=== PATIENT | female | born 1935 | race Caucasian/White ===

== ENCOUNTER → 2016-08-27 | Outpatient (CLI) | payer MEDICARE ==
--- NOTE | 2016-08-27 11:59 | US ---
EXAMINATION TYPE: US venous doppler duplex LE RT DATE OF EXAM: 08/27/2016 11:20 AM COMPARISON: NONE CLINICAL HISTORY: 80 year-old female right Lower Extremity DVT I80.9. RIGHT leg pain and swelling pos t meniscus repair SIDE PERFORMED: Right TECHNIQUE: The lower extremity deep venous system is examined utilizing real time linear array sonog jannet with graded compression, doppler sonography and color-flow sonography. FINDINGS: VESSELS IMAGED: External Iliac Vein (EIV) Common Femoral Vein Deep Femoral Vein Greater Saphenous Vein * Femoral Vein Popliteal Vein Proximal Calf Veins Posterior tibial veins (* superficial vessels) Right Leg: Negative for DVT IMPRESSION: No evidence for DVT within the right lower extremity.
== END | disposition home or self-care (01) ==
LOC: RADUSWWP 10:53
PROVIDERS: ATTEND Orthopaedic Surgery Sports Medicine
DX: M25.561 Pain in right knee (principal); I82.401 Acute embolism and thrombosis of unspecified deep veins of right lower extremity; M79.661 Pain in right lower leg

== ENCOUNTER → 2018-02-12 | Outpatient (CLI) | payer MEDICARE ==
--- NOTE | 2018-02-15 09:03 | MM ---
Reason for exam: screening (asymptomatic). Last mammogram was performed 1 year ago. History: Patient is postmenopausal. Family history of breast cancer in paternal aunt. Reductions of both breasts, 1987. Excisional biopsy of both breasts. Physical Findings: A clinical breast exam by your physician is recommended on an annual basis and results should be correlated with mammographic findings. MG 3D Screening Mammo W/Cad Bilateral CC and MLO view(s) were taken. Prior study comparison: February 10, 2017, bilateral MG 3d screening mammo w/cad. January 08, 2016, mammogram, performed at [facility]. The breast tissue is heterogeneously dense. This may lower the sensitivity of mammography. Stable benign calcifications. There is no discrete abnormality. No significant changes when compared with prior studies. ASSESSMENT: Benign, BI-RAD 2 RECOMMENDATION: Routine screening mammogram of both breasts in 1 year.
== END | disposition home or self-care (01) ==
LOC: RADMAMWWP 07:57
PROVIDERS: ATTEND Internal Medicine
DX: Z12.31 Encounter for screening mammogram for malignant neoplasm of breast (principal)
CPT/HCPCS: 77063; 77067

== ENCOUNTER → 2018-10-12 | Outpatient (CLI) | payer MEDICARE ==
--- NOTE | 2018-10-12 21:00 | CT ---
EXAMINATION TYPE: CT brain wo con DATE OF EXAM: 10/12/2018 HISTORY: COGNITIVE IMPAIRMENT, MEMORY ISSUES X6 MONTHS CT DLP: 1047.1 mGycm. Automated Exposure Control for Dose Reduction was Utilized. TECHNIQUE: CT scan of the head is performed without contrast. COMPARISON: None. FINDINGS: There is no acute intracranial hemorrhage or midline shift identified. There is diffuse v entricular and sulcal prominence consistent with diffuse age-related cerebral atrophy. There is low- attenuation in the periventricular white matter consistent with chronic small vessel ischemic change. The globes are intact and the visualized sinuses are clear. IMPRESSION: No acute intracranial hemorrhage or midline shift. There is mild diffuse age-related ce rebral atrophy and chronic small vessel ischemic change noted.
== END | disposition home or self-care (01) ==
LOC: RADCTMAIN 16:55
PROVIDERS: ATTEND Internal Medicine
DX: G31.1 Senile degeneration of brain, not elsewhere classified (principal); I67.82 Cerebral ischemia; Z88.2 Allergy status to sulfonamides
CPT/HCPCS: 70450

== ENCOUNTER 2021-01-25 16:48 | Inpatient (IN) | payer MEDICARE ==
[2021-01-25] MEDS ORDERED: SODIUM CHLORIDE 0.9% 500 ML 500 ML IV STA (17:33)
--- NOTE | 2021-01-25 17:47 | ED ---
General Adult HPI - General Chief complaint: ENT Stated complaint: sores in mouth Time Seen by Provider: 01/25/21 17:14 Source: patient Mode of arrival: ambulatory Limitations: no limitations - History of Present Illness Initial comments: 85-year-old female with a history of dementia presents to the emergency department, accompanied by her spouse and her daughter, for evaluation of mouth sores, onset 1 week ago. Patient's daughter states the number and size of the sores have increased over the course of the past week. The patient has been seen by a dentist and credit relationship manager, one of which referred her to hematology. Daughter states they will be unable to see the metal framer until next week or the following week. She is concerned because the patient has had decreased oral intake due to discomfort associated with mouth sores. Motrin was given prior to arrival with minimal improvement. When asked about bleeding and bruising, patient and family deny any episodes. Patient denies any fever, chills, headache, chest pain, shortness of breath, or bowel or bladder changes. - Related Data Home Medications Medication Instructions Recorded Confirmed Aspirin EC [Ecotrin Low Dose] 81 mg PO DAILY 01/25/21 01/25/21 Cholecalciferol [Vitamin D3 (25 25 mcg PO DAILY 01/25/21 01/25/21 Mcg = 1000 Iu)] Docusate [Colace] 100 mg PO BID 01/25/21 01/25/21 Donepezil [Aricept] 10 mg PO BID 01/25/21 01/25/21 Latanoprost [Xalatan 0.005%] 1 drop BOTH EYES HS 01/25/21 01/25/21 Memantine [Namenda] 10 mg PO BID 01/25/21 01/25/21 Mirtazapine [Remeron] 22.5 mg PO HS 01/25/21 01/25/21 Multivitamins, Thera [Multivitamin 1 tab PO DAILY 01/25/21 01/25/21 (formulary)] Neuro-Peak 1 tab PO DAILY 01/25/21 01/25/21 [place]-3 Fatty Acids/Fish Oil [Fish 1 cap PO DAILY 01/25/21 01/25/21 Oil 1,000 mg Softgel] Quinapril HCl [Accupril] 10 mg PO DAILY 01/25/21 01/25/21 Simvastatin [Zocor] 40 mg PO HS 01/25/21 01/25/21 Zinc 50 mg PO DAILY 01/25/21 01/25/21 Allergies Allergy/AdvReac Type Severity Reaction Status Date / Time Sulfa (Sulfonamide Allergy Unknown Verified 01/25/21 18:07 Antibiotics) Review of Systems ROS Statement: Those systems with pertinent positive or pertinent negative responses have been documented in the HPI. ROS Other: All systems not noted in ROS Statement are negative. Past Medical History Past Medical History: Dementia, Hyperlipidemia, Hypertension History of Any Multi-Drug Resistant Organisms: None Reported Past Surgical History: Hysterectomy Past Psychological History: No Psychological Hx Reported Smoking Status: Former smoker Past Alcohol Use History: None Reported Past Drug Use History: None Reported General Exam General appearance: alert, in no apparent distress, other (Well-developed, well- nourished female in no acute distress. Patient is a poor historian due to diagnosis of dementia. Family provides details, contacts, and timeline.) Head exam: Present: atraumatic, normocephalic, normal inspection Eye exam: Present: normal appearance, PERRL, EOMI. Absent: conjunctival injection Expanded Mouth exam: Present: normal external inspection, other (Multiple areas of oral purpura noted on buccal mucosa and floor of the mouth) Neck exam: Present: normal inspection. Absent: tenderness, meningismus, lymphadenopathy Respiratory exam: Present: normal lung sounds bilaterally. Absent: respiratory distress, wheezes, rales, rhonchi, stridor Cardiovascular Exam: Present: regular rate, normal rhythm, normal heart sounds. Absent: systolic murmur, diastolic murmur, rubs, gallop, clicks GI/Abdominal exam: Present: soft, normal bowel sounds. Absent: distended, tenderness, guarding, rebound, rigid Skin exam: Present: warm, dry, intact, petechiae (Scattered across upper chest and bilateral lower extremities) Course Vital Signs 01/25/21 01/25/21 01/25/21 17:02 18:08 21:11 Temperature 98.2 F Pulse Rate 71 Respiratory 18 16 Rate Blood Pressure 133/76 143/75 O2 Sat by Pulse 98 Oximetry 01/25/21 01/25/21 01/25/21 22:26 22:36 22:38 Temperature 98.2 F 98.4 F 98.4 F Pulse Rate 59 L 65 70 Respiratory 18 18 18 Rate Blood Pressure 151/78 154/74 154/74 O2 Sat by Pulse 98 98 Oximetry 01/25/21 01/26/21 23:06 00:10 Temperature 98.0 F 98.2 F Pulse Rate 62 91 Respiratory 18 16 Rate Blood Pressure 157/72 144/78 O2 Sat by Pulse 98 98 Oximetry Medical Decision Making - Medical Decision Making 85-year-old female with history of dementia was evaluated for complaints of mouth sores. Physical exam is significant for multiple areas of purpura in the oral and buccal mucosa. Patient also has scattered areas of pinpoint petechiae on the upper chest and lower extremities. Pertinent lab finding includes a platelet level of 3. Patient was given Protonix; platelet transfusion ordered. This patient's case was discussed with my attending Dr. Moore. She will be admitted with a diagnosis of thrombocytopenia. Spoke with Dr. Angulo regarding admission. - Lab Data Result diagrams: 01/25/21 Unknown 01/25/21 17:40 Lab Results 01/25/21 01/25/21 01/25/21 Range/Units 17:40 17:40 21:10 PT 10.7 (9.0-12.0) sec INR 1.0 (<1.2) APTT 21.6 L (22.0-30.0) sec Sodium 136 L (137-145) mmol/L Potassium 4.2 (3.5-5.1) mmol/L Chloride 104 (98-107) mmol/L Carbon Dioxide 26 (22-30) mmol/L Anion Gap 6 mmol/L BUN 36 H (7-17) mg/dL Creatinine 0.78 (0.52-1.04) mg/dL Est GFR (CKD-EPI)AfAm 80 (>60 ml/min/1.73 sqM) Est GFR (CKD-EPI)NonAf 69 (>60 ml/min/1.73 sqM) Glucose 91 (74-99) mg/dL Calcium 9.5 (8.4-10.2) mg/dL Total Bilirubin 0.4 (0.2-1.3) mg/dL AST 31 (14-36) U/L ALT 15 (4-34) U/L Alkaline Phosphatase 66 (38-126) U/L Total Protein 7.1 (6.3-8.2) g/dL Albumin 4.0 (3.5-5.0) g/dL Blood Type A Positive Blood Type Confirm Blood Type Recheck No Previous Record Bld Type Recheck Status CABO Indicated Antibody Screen NEGATIVE Transfuse Platelets 01/25/2021 Spec Expiration Date 01/28/2021 - 230901/25/21 Range/Units 21:19 PT (9.0-12.0) sec INR (<1.2) APTT (22.0-30.0) sec Sodium (137-145) mmol/L Potassium (3.5-5.1) mmol/L Chloride (98-107) mmol/L Carbon Dioxide (22-30) mmol/L Anion Gap mmol/L BUN (7-17) mg/dL Creatinine (0.52-1.04) mg/dL Est GFR (CKD-EPI)AfAm (>60 ml/min/1.73 sqM) Est GFR (CKD-EPI)NonAf (>60 ml/min/1.73 sqM) Glucose (74-99) mg/dL Calcium (8.4-10.2) mg/dL Total Bilirubin (0.2-1.3) mg/dL AST (14-36) U/L ALT (4-34) U/L Alkaline Phosphatase (38-126) U/L Total Protein (6.3-8.2) g/dL Albumin (3.5-5.0) g/dL Blood Type Blood Type Confirm A Positive Blood Type Recheck Bld Type Recheck Status Antibody Screen Transfuse Platelets Spec Expiration Date Disposition Clinical Impression: Thrombocytopenia Disposition: ADMITTED IP TO THIS [facility] Condition: Serious Decision to Admit Reason: Admit from EC Decision Date: 01/25/21 Decision Time: 22:30
[2021-01-25 17:55] LABS: Calcium 9.5 mg/dL (8.4-10.2); Potassium 4.2 mmol/L (3.5-5.1); Total Bilirubin 0.4 mg/dL (0.2-1.3); Total Protein 7.1 g/dL (6.3-8.2)
[2021-01-25 18:02] LABS: Partial Thromboplastin Time 21.6 sec (22.0-30.0); Prothrombin Time 10.7 sec (9.0-12.0)
[2021-01-25 18:32] LABS: Basophils % (A) 0 %; Eosinophils # (A) 0.1 k/uL (0-0.7); Eosinophils % (A) 2 %; HCT 41.3 % (34.0-46.0); HGB 13.9 gm/dL (11.4-16.0); Lymphocytes # (A) 1.4 k/uL (1.0-4.8); Lymphocytes % (A) 17 %; MCH 29.4 pg (25.0-35.0); MCHC 33.6 g/dL (31.0-37.0); MCV 87.5 fL (80.0-100.0); Mean Platelet Volume 10.2; Monocytes # (A) 0.3 k/uL (0-1.0); Monocytes % (A) 4 %; Neutrophils # (A) 6.1 k/uL (1.3-7.7); Neutrophils % (A) 75 %; RBC 4.72 m/uL (3.80-5.40); RDW 13.2 % (11.5-15.5); WBC 8.1 k/uL (3.8-10.6)
[2021-01-25 19:19] LABS: Platelet Count 3 k/uL (150-450)
[2021-01-25 19:21] LABS: Poikilocytosis (M) Present
[2021-01-25] MEDS ORDERED: PANTOPRAZOLE 40 MG/10 ML VIAL IVP STA (20:31)
[2021-01-25] MEDS ORDERED: NALOXONE 0.4 MG/ML 1 ML VIAL IV PRN (22:19)
--- NOTE | 2021-01-26 00:05 | P.HPIM ---
History of Present Illness H&P Date: 01/25/21 The patient is an 85-year-old female with a PMH of dementia, hypertension, and hyperlipidemia who was brought in by her daughter due to painful multiple ulcers. History supplemental by the daughter at the bedside due to the patient's history of dementia. The daughter states that the patient developed painful mouth ulcers roughly a week ago, for which she was seen at her dentist who subsequently referred him to an geosciences faculty member who then referred him to a pit clerk. The patient has been trying to obtain an appointment with the pit clerk but was told that it may take several weeks. As per the daughter, the patient has been refusing to eat or drink much due to pain associated with the source. The patient reportedly has no history of such sores in the past, no history of bleeding disorders, bone marrow disorders, leukemias, anemia of any sort, or low platelets. The daughter reported noticing some small scattered red spots throughout her legs and also on her chest. The patient was started on Namenda 6 weeks ago with no additional changes in her medications recently. The patient denied chest discomfort, shortness of breath, fever, chills, cough. Denied nausea, vomiting, abdominal pain, diarrhea. In the emergency room, laboratory evaluation revealed a platelet count of 3, and BUN 36. Review of systems: Pertinent positives and negatives as discussed in HPI, a complete review of systems was performed and all other systems are negative. Physical examination: General: non toxic, no distress, appears at stated age, normal weight Derm: no unusual rashes/lesions no unusual ecchymoses, warm, dry Head: atraumatic, normocephalic, symmetric Eyes: EOMI, no lid lag, anicteric sclera, pupils equal round reactive to light ENT: Nose and ears atraumatic, no thrush, no pharyngeal erythema Neck: No thyromegaly, no cervical lymphadenopathy, trachea midline, supple Mouth: no lip lesion, mucus membranes moist Cardiovascular: S1S2 reg, no murmur, positive posterior tibial pulse bilateral, no edema, capillary refill less than 2 seconds Lungs: CTA bilateral, no rhonchi, no rales , no accessory muscle use Abdominal: soft, nontender to palpation, no guarding, no appreciable org anomegaly, normal bowel sounds Ext: no gross muscle atrophy, muscle strength 5 out of 5 in all 4 extremities grossly, no contractures, Neuro: CN II-XI grossly intact, light touch intact all 4 extremities, finger to nose within normal limits, Psych: Alert, oriented only to self, not oriented to place or time, pleasant Assessment/plan Severe thrombocytopenia -5 units of platelets ordered -Hematology consulted -No clear etiology at this time Prerenal azotemia, likely secondary to poor oral intake and dehydration -Continue with IV fluids -Monitor BMP Chronic conditions: Hypertension, hyperlipidemia dementia -Continue with home meds DVT prophylaxis -IPCDs The patient is admitted with an anticipated greater than 2 midnight stay for evaluation of thrombocytopenia CODE STATUS: Full Code Discussed with: Patient Anticipated discharge date: 2-[address]: Home Past Medical History Past Medical History: Dementia, Hyperlipidemia, Hypertension History of Any Multi-Drug Resistant Organisms: None Reported Past Surgical History: Hysterectomy Past Psychological History: No Psychological Hx Reported Smoking Status: Former smoker Past Alcohol Use History: None Reported Past Drug Use History: None Reported Medications and Allergies Home Medications Medication Instructions Recorded Confirmed Type Aspirin EC [Ecotrin Low Dose] 81 mg PO DAILY 01/25/21 01/25/21 History Cholecalciferol [Vitamin D3 (25 25 mcg PO DAILY 01/25/21 01/25/21 History Mcg = 1000 Iu)] Docusate [Colace] 100 mg PO BID 01/25/21 01/25/21 History Donepezil [Aricept] 10 mg PO BID 01/25/21 01/25/21 History Latanoprost [Xalatan 0.005%] 1 drop BOTH EYES HS 01/25/21 01/25/21 History Memantine [Namenda] 10 mg PO BID 01/25/21 01/25/21 History Mirtazapine [Remeron] 22.5 mg PO HS 01/25/21 01/25/21 History Multivitamins, Thera [Multivitamin 1 tab PO DAILY 01/25/21 01/25/21 History (formulary)] Neuro-Peak 1 tab PO DAILY 01/25/21 01/25/21 History [place]-3 Fatty Acids/Fish Oil [Fish 1 cap PO DAILY 01/25/21 01/25/21 History Oil 1,000 mg Softgel] Quinapril HCl [Accupril] 10 mg PO DAILY 01/25/21 01/25/21 History Simvastatin [Zocor] 40 mg PO HS 01/25/21 01/25/21 History Zinc 50 mg PO DAILY 01/25/21 01/25/21 History Allergies Allergy/AdvReac Type Severity Reaction Status Date / Time Sulfa (Sulfonamide Allergy Unknown Verified 01/25/21 18:07 Antibiotics) Physical Exam Vitals: Vital Signs Temp Pulse Resp BP Pulse Ox 01/25/21 23:06 98.0 F 62 18 157/72 98 01/25/21 22:38 98.4 F 70 18 154/74 98 01/25/21 22:36 98.4 F 65 18 154/74 98 01/25/21 22:26 98.2 F 59 L 18 151/78 01/25/21 21:11 143/75 01/25/21 18:08 16 01/25/21 17:02 98.2 F 71 18 133/76 98 Intake and Output 01/25/21 01/25/21 01/26/21 14:59 22:59 06:59 Intake Total 0 Balance 0 Intake: Blood Product 0 Platelet Pheresis Pas 0 Psoralen Unit [id number] Other: Weight 56.699 kg Results CBC & Chem 7: 01/25/21 Unknown 01/25/21 17:40 Labs: Abnormal Lab Results - Last 24 Hours (Table) 01/25/21 01/25/21 01/25/21 Range/Units 17:40 17:40 Unknown Plt Count 3 L* (150-450) k/uL APTT 21.6 L (22.0-30.0) sec Sodium 136 L (137-145) mmol/L BUN 36 H (7-17) mg/dL
[2021-01-26] MEDS: SODIUM CHLORIDE 0.9% 1,000 ML IV SCH ×2 (01:27→14:46)
[2021-01-26 08:11] LABS: Basophils % (A) 0 %; Eosinophils # (A) 0.1 k/uL (0-0.7); Eosinophils % (A) 1 %; HGB 12.8 gm/dL (11.4-16.0); Lymphocytes # (A) 0.6 k/uL (1.0-4.8); Lymphocytes % (A) 8 %; MCH 29.9 pg (25.0-35.0); MCHC 33.6 g/dL (31.0-37.0); MCV 89.1 fL (80.0-100.0); Mean Platelet Volume 17.4; Monocytes # (A) 0.3 k/uL (0-1.0); Monocytes % (A) 5 %; Neutrophils # (A) 5.6 k/uL (1.3-7.7); Neutrophils % (A) 85 %; RBC 4.27 m/uL (3.80-5.40); RDW 13.1 % (11.5-15.5); WBC 6.6 k/uL (3.8-10.6)
[2021-01-26 08:14] LABS: Platelet Count 4 k/uL (150-450)
[2021-01-26 09:52] LABS: Large Platelets Present
[2021-01-26] MEDS: MEMANTINE 10 MG TAB PO SCH ×2 (10:43→22:02)
[2021-01-26] MEDS: DONEPEZIL 10 MG TAB PO SCH ×2 (10:43→21:30)
[2021-01-26] MEDS: DOCUSATE 100 MG CAP PO SCH ×2 (10:43→21:29)
[2021-01-26] MEDS: ZINC SULFATE 220 MG CAP PO SCH (10:43)
[2021-01-26] MEDS: lisinopriL 10 MG TAB PO SCH (10:43)
[2021-01-26] MEDS ORDERED: NON FORMULARY DRUG IV SCH (11:45)
--- NOTE | 2021-01-26 11:53 | P.CONS ---
History of Present Illness - Reason for Consult Consult date: 01/26/21 Thrombocytopenia Requesting physician: Fredi Moore - Chief Complaint Mouth Sores and petechaie - History of Present Illness Mrs. Atkinson iss an 85 year old female who presents to hospital with complaints of BLE rash and mouth sores. On admission platelet count 3K. Therefore we have been asked to evaluate further. Daughter and at bedside, no recent infections, vaccinations, or new medications other than Namenda. Review of Systems ROS unobtainable: due to mental status All systems: negative Past Medical History Past Medical History: Dementia, Hyperlipidemia, Hypertension History of Any Multi-Drug Resistant Organisms: None Reported Past Surgical History: Hysterectomy Past Anesthesia/Blood Transfusion Reactions: Postoperative Nausea & Vomiting (PONV) Past Psychological History: No Psychological Hx Reported Smoking Status: Former smoker Past Alcohol Use History: None Reported Past Drug Use History: None Reported Medications and Allergies Home Medications Medication Instructions Recorded Confirmed Type Aspirin EC [Ecotrin Low Dose] 81 mg PO DAILY 01/25/21 01/25/21 History Cholecalciferol [Vitamin D3 (25 25 mcg PO DAILY 01/25/21 01/25/21 History Mcg = 1000 Iu)] Docusate [Colace] 100 mg PO BID 01/25/21 01/25/21 History Donepezil [Aricept] 10 mg PO BID 01/25/21 01/25/21 History Latanoprost [Xalatan 0.005%] 1 drop BOTH EYES HS 01/25/21 01/25/21 History Memantine [Namenda] 10 mg PO BID 01/25/21 01/25/21 History Mirtazapine [Remeron] 22.5 mg PO HS 01/25/21 01/25/21 History Multivitamins, Thera [Multivitamin 1 tab PO DAILY 01/25/21 01/25/21 History (formulary)] Neuro-Peak 1 tab PO DAILY 01/25/21 01/25/21 History [place]-3 Fatty Acids/Fish Oil [Fish 1 cap PO DAILY 01/25/21 01/25/21 History Oil 1,000 mg Softgel] Quinapril HCl [Accupril] 10 mg PO DAILY 01/25/21 01/25/21 History Simvastatin [Zocor] 40 mg PO HS 01/25/21 01/25/21 History Zinc 50 mg PO DAILY 01/25/21 01/25/21 History Allergies Allergy/AdvReac Type Severity Reaction Status Date / Time Sulfa (Sulfonamide Allergy Unknown Verified 01/25/21 18:07 Antibiotics) Physical Exam Vitals: Vital Signs Temp Pulse Pulse Resp BP BP Pulse Ox 01/26/21 11:41 98.4 F 79 16 127/69 96 01/26/21 10:44 127/72 01/26/21 06:01 98.2 F 83 18 151/76 95 01/26/21 01:23 98.5 F 82 18 130/70 96 01/26/21 00:10 98.2 F 91 16 144/78 98 01/25/21 23:50 16 01/25/21 23:06 98.0 F 62 18 157/72 98 01/25/21 22:38 98.4 F 70 18 154/74 98 01/25/21 22:36 98.4 F 65 18 154/74 98 01/25/21 22:26 98.2 F 59 L 18 151/78 01/25/21 21:11 143/75 01/25/21 18:08 16 01/25/21 17:02 98.2 F 71 18 133/76 98 Intake and Output 01/25/21 01/26/21 01/26/21 22:59 06:59 14:59 Intake Total 0 637 Balance 0 637 Intake: Intake, IV Titration 300 Amount Sodium Chloride 0.9% 1, 300 000 ml @ 75 mls/hr IV . [id number] [facility] Rx#:[id number] Blood Product 0 337 Platelet Pheresis Pas 0 337 Psoralen Unit [id number] Other: Voiding Method Toilet Toilet # Voids 2 Weight 56.699 kg 59 kg - Constitutional Blood blisters in mouth General appearance: cooperative, no acute distress - EENT Eyes: EOMI ENT: hard of hearing, NA/AT - Neck Neck: normal ROM - Respiratory Respiratory: bilateral: CTA - Cardiovascular Rhythm: regularly irregular leg Peripheral Edema: bilateral: Trace (petechaei in bilateral lower legs ) - Gastrointestinal General gastrointestinal: normal bowel sounds, soft - Integumentary Integumentary: pale - Neurologic caty - Musculoskeletal Musculoskeletal: generalized weakness - Psychiatric Poor historian Results CBC & Chem 7: 01/27/21 05:23 01/27/21 05:23 Labs: Abnormal Lab Results - Last 24 Hours (Table) 01/25/21 01/25/21 01/25/21 Range/Units 17:40 17:40 Unknown Plt Count 3 L* (150-450) k/uL Lymphocytes # (1.0-4.8) k/uL APTT 21.6 L (22.0-30.0) sec Sodium 136 L (137-145) mmol/L BUN 36 H (7-17) mg/dL 01/26/21 Range/Units 06:46 Plt Count 4 L* (150-450) k/uL Lymphocytes # 0.6 L (1.0-4.8) k/uL APTT (22.0-30.0) sec Sodium (137-145) mmol/L BUN (7-17) mg/dL Assessment and Plan (1) Acute ITP Current Visit: Yes Status: Acute Code(s): D69.3 - IMMUNE THROMBOCYTOPENIC PURPURA SNOMED Code(s): 136646101 (2) Thrombocytopenia Current Visit: Yes Status: Acute Code(s): D69.6 - THROMBOCYTOPENIA, UNSPECIFIED SNOMED Code(s): 102572723 Plan: IV Dexamethasone PPI ans IVIG Transfuse platelets since less than 10K
[2021-01-26] MEDS ORDERED: IMMUNE GLOBULIN (GAMMAGARD) 20 GM in EMPTY BAG 1 BAG IV ONE (13:00)
[2021-01-26] MEDS: DEXAMETHASONE SOD PHOSPHATE 10 MG/ML 1 ML VIAL IV SCH (13:01)
--- NOTE | 2021-01-26 17:44 | P.PN ---
Subjective Progress Note Date: 01/26/21 No significant events overnight, still awaiting platelet transfusion, no signs of active bleeding, no new bruising. Patient denies any chest pain, shortness of breath, no hemoptysis, no hematuria, no blood in stool. She denies taking anticoagulants at home, but has been on aspirin. No history of bleeding disorders or coagulopathy in the past Objective - Vital Signs Vital signs: Vital Signs Temp 98.6 F 01/26/21 15:35 Pulse 86 01/26/21 15:35 Resp 18 01/26/21 15:35 BP 113/63 01/26/21 15:35 Pulse Ox 95 01/26/21 15:35 Intake & Output 01/25/21 01/26/21 01/26/21 18:59 06:59 18:59 Intake Total 637 35 Balance 637 35 Weight 56.699 kg 59 kg Intake: Intake, IV Titration 300 35 Amount Immune Globulin ( 35 Gammagard) 20 gm In Empty Bag 1 bag @ Titrate IV . Q0M ONE Rx#:[id number] Sodium Chloride 0.9% 1, 300 000 ml @ 75 mls/hr IV . [id number] [facility] Rx#:[id number] Blood Product 337 Platelet Pheresis Pas 337 Psoralen Unit [id number] Other: Voiding Method Toilet Toilet # Voids 2 - Exam General: non toxic, no distress, appears at stated age, normal weight Derm: no unusual rashes/lesions no unusual ecchymoses, warm, dry Head: atraumatic, normocephalic, symmetric Eyes: EOMI, no lid lag, anicteric sclera, pupils equal round reactive to light ENT: Nose and ears atraumatic, no thrush, no pharyngeal erythema Neck: No thyromegaly, no cervical lymphadenopathy, trachea midline, supple Mouth: no lip lesion, mucus membranes moist Cardiovascular: S1S2 reg, no murmur, positive posterior tibial pulse bilateral, no edema, capillary refill less than 2 seconds Lungs: CTA bilateral, no rhonchi, no rales , no accessory muscle use Abdominal: soft, nontender to palpation, no guarding, no appreciable organomegaly, normal bowel sounds Ext: no gross muscle atrophy, muscle strength 5 out of 5 in all 4 extremities grossly, no contractures, Neuro: CN II-XI grossly intact, light touch intact all 4 extremities, finger to nose within normal limits, Psych: Alert, oriented only to self, not oriented to place or time, pleasant - Labs CBC & Chem 7: 01/26/21 06:46 01/25/21 17:40 Labs: Abnormal Lab Results - Last 24 Hours (Table) 01/25/21 01/25/21 01/25/21 Range/Units 17:40 17:40 Unknown Plt Count 3 L* (150-450) k/uL Lymphocytes # (1.0-4.8) k/uL APTT 21.6 L (22.0-30.0) sec Sodium 136 L (137-145) mmol/L BUN 36 H (7-17) mg/dL 01/26/21 Range/Units 06:46 Plt Count 4 L* (150-450) k/uL Lymphocytes # 0.6 L (1.0-4.8) k/uL APTT (22.0-30.0) sec Sodium (137-145) mmol/L BUN (7-17) mg/dL Assessment and Plan Assessment: Severe thrombocytopenia -5 units of platelets ordered but have not arrived yet -Differential diagnoses includes: immune/idiopathic thrombocytopenia, bone marrow suppression -Check peripheral blood smear, HCV, coagulation studies -Patient is receiving IV Decadron and IVIG -Appreciate further recommendations from hematology Prerenal azotemia -Creatinine has been stable -likely secondary to poor oral intake and dehydration -Continue with IV fluids -Monitor BMP Chronic conditions: Hypertension, hyperlipidemia dementia -Continue with home meds DVT prophylaxis -IPCDs Time with Patient: Less than 30
[2021-01-26] MEDS: PANTOPRAZOLE 40 MG TABLET PO SCH (17:46)
[2021-01-26] MEDS ORDERED: HYDROcodone/APAP 5-325MG 1 EACH TAB PO PRN (18:20)
[2021-01-26] MEDS ORDERED: ACETAMINOPHEN TAB 325 MG TAB PO PRN (18:20)
[2021-01-26] MEDS: ATORVASTATIN 20 MG TAB PO SCH (21:29)
[2021-01-26] MEDS: MELATONIN 3 MG TABLET PO SCH (21:30)
[2021-01-26] MEDS: MIRTAZAPINE 15 MG TAB PO SCH (22:02)
[2021-01-26] MEDS: LATANOPROST 0.005% OPHTH DROPS 2.5 ML BTL BOTH EYES SCH (23:12)
[2021-01-27] MEDS: SODIUM CHLORIDE 0.9% 1,000 ML IV SCH (04:15)
[2021-01-27 06:13] LABS: INR 1.1 (<1.2); Prothrombin Time 11.6 sec (9.0-12.0)
[2021-01-27 06:25] LABS: Basophils % (A) 0 %; Eosinophils % (A) 0 %; HCT 39.1 % (34.0-46.0); HGB 13.2 gm/dL (11.4-16.0); Lymphocytes # (A) 0.6 k/uL (1.0-4.8); Lymphocytes % (A) 6 %; MCH 29.7 pg (25.0-35.0); MCHC 33.7 g/dL (31.0-37.0); MCV 87.9 fL (80.0-100.0); Mean Platelet Volume 14.6; Monocytes # (A) 0.3 k/uL (0-1.0); Monocytes % (A) 2 %; Neutrophils # (A) 10.2 k/uL (1.3-7.7); Neutrophils % (A) 92 %; RBC 4.44 m/uL (3.80-5.40); RDW 13.2 % (11.5-15.5); WBC 11.2 k/uL (3.8-10.6)
[2021-01-27 06:49] LABS: ALT 17 U/L (4-34); AST 32 U/L (14-36); African American GFR (CKD) 83 (>60 ml/min/1.73 sqM); Albumin 3.8 g/dL (3.5-5.0); Albumin/Globulin Ratio 1.1; Alkaline Phosphatase 70 U/L (38-126); Anion Gap 9 mmol/L; Blood Urea Nitrogen 22 mg/dL (7-17); Carbon Dioxide 24 mmol/L (22-30); Chloride 111 mmol/L (98-107); Globulin 3.6 g/dL; Glucose 127 mg/dL (74-99); Non-African American GFR(CKD) 72 (>60 ml/min/1.73 sqM); Potassium 3.4 mmol/L (3.5-5.1); Sodium 144 mmol/L (137-145); Total Bilirubin 0.5 mg/dL (0.2-1.3); Total Protein 7.4 g/dL (6.3-8.2)
[2021-01-27 07:02] LABS: Platelet Count 9 k/uL (150-450)
[2021-01-27] MEDS: ZINC SULFATE 220 MG CAP PO SCH (09:10)
[2021-01-27] MEDS: lisinopriL 10 MG TAB PO SCH (09:10)
[2021-01-27] MEDS: DONEPEZIL 10 MG TAB PO SCH ×2 (09:10→21:17)
[2021-01-27] MEDS: PANTOPRAZOLE 40 MG TABLET PO SCH ×2 (09:10→17:02)
[2021-01-27] MEDS: DOCUSATE 100 MG CAP PO SCH ×2 (09:11→21:17)
[2021-01-27] MEDS: DEXAMETHASONE SOD PHOSPHATE 10 MG/ML 1 ML VIAL IV SCH (09:11)
[2021-01-27 09:42] LABS: Erythrocyte Sedimentation Rate 40 mm/hr (0-20)
[2021-01-27 10:27] LABS: Anisocytosis (M) Present; Poikilocytosis (M) Present
[2021-01-27] MEDS: MEMANTINE 10 MG TAB PO SCH ×2 (10:49→21:35)
[2021-01-27] MEDS ORDERED: POTASSIUM CHLORIDE ER 20 MEQ TAB.ER PO STA (10:55)
[2021-01-27] MEDS ORDERED: IMMUNE GLOBULIN (GAMMAGARD) 20 GM in EMPTY BAG 1 BAG IV ONE (13:00)
--- NOTE | 2021-01-27 14:55 | P.PN ---
Subjective Progress Note Date: 01/27/21 patient has received platelet transfusions 2 so far, but her platelets have only increased from 4968-7497. Hemoglobin has been stable, no signs of bleeding, no new bruising, blood pressure has been stable. She denies any headache, no shocks of breath, no chest pain, no abdominal pain, hemoptysis hematuria or hematochezia. She has been fairly stable with no new complaints or symptoms Objective - Vital Signs Vital signs: Vital Signs Temp 97.8 F 01/27/21 04:42 Pulse 91 01/27/21 09:13 Resp 18 01/27/21 04:42 BP 138/68 01/27/21 09:13 Pulse Ox 98 01/27/21 04:42 Intake & Output 01/26/21 01/27/21 01/27/21 18:59 06:59 18:59 Intake Total 35 1446 83.5 Balance 35 1446 83.5 Intake: Intake, IV Titration 35 900 83.5 Amount Immune Globulin ( 35 Gammagard) 20 gm In Empty Bag 1 bag @ Titrate IV . Q0M ONE Rx#:[id number] Immune Globulin ( 83.5 Gammagard) 20 gm In Empty Bag 1 bag @ Titrate IV . Q0M ONE Rx#:[id number] Sodium Chloride 0.9% 1, 900 000 ml @ 75 mls/hr IV . [id number] [facility] Rx#:[id number] Blood Product 546 Platelet Pheresis Pas 273 Psoralen Unit [id number] Other: Voiding Method Toilet Toilet # Voids 2 1 - Exam General: non toxic, no distress, appears at stated age, normal weight Derm: no unusual rashes/lesions no unusual ecchymoses, warm, dry Head: atraumatic, normocephalic, symmetric Eyes: EOMI, no lid lag, anicteric sclera, pupils equal round reactive to light ENT: Nose and ears atraumatic, no thrush, no pharyngeal erythema Neck: No thyromegaly, no cervical lymphadenopathy, trachea midline, supple Mouth: no lip lesion, mucus membranes moist Cardiovascular: S1S2 reg, no murmur, positive posterior tibial pulse bilateral, no edema, capillary refill less than 2 seconds Lungs: CTA bilateral, no rhonchi, no rales , no accessory muscle use Abdominal: soft, nontender to palpation, no guarding, no appreciable organomegaly, normal bowel sounds Ext: no gross muscle atrophy, muscle strength 5 out of 5 in all 4 extremities grossly, no contractures, Neuro: CN II-XI grossly intact, light touch intact all 4 extremities, finger to nose within normal limits, Psych: Alert, oriented only to self, not oriented to place or time, pleasant - Labs CBC & Chem 7: 01/27/21 05:23 01/27/21 05:23 Labs: Abnormal Lab Results - Last 24 Hours (Table) 01/26/21 01/27/21 01/27/21 Range/Units 06:46 05:23 05:23 WBC 11.2 H (3.8-10.6) k/uL Plt Count 9 L* D (150-450) k/uL Neutrophils # 10.2 H (1.3-7.7) k/uL Lymphocytes # 0.6 L (1.0-4.8) k/uL ESR 40 H (0-20) mm/hr Potassium 3.4 L (3.5-5.1) mmol/L Chloride 111 H (98-107) mmol/L BUN 22 H (7-17) mg/dL Glucose 127 H (74-99) mg/dL Vitamin B12 1182.0 H (200.0-944.0) pg/mL Assessment and Plan Assessment: Severe thrombocytopenia -platelet levels only increase in 9000 after 2 sets of platelet transfusions -Differential diagnoses includes: immune/idiopathic thrombocytopenia, bone marrow suppression -Check peripheral blood smear, HCV, coagulation studies, GARLAND, RF, TSH -Patient is receiving IV Decadron and IVIG -Appreciate further recommendations from hematology Prerenal azotemia -resolved, creatinine is normal today -likely secondary to poor oral intake and dehydration -IV fluids have been discontinued -Monitor BMP Chronic conditions: Hypertension, hyperlipidemia dementia -Continue with home meds DVT prophylaxis -IPCDs anticipated discharge home the next 2-3 days, or when platelets are relatively stable around 30-40,000 Time with Patient: Greater than 30
[2021-01-27 17:17] LABS: Iron 39 ug/dL (50-170)
[2021-01-27 18:36] LABS: % Iron Saturation 13.08 (12.00-45.00); Ferritin 92.5 ng/mL (10.0-291.0); Iron 40 ug/dL (50-170); Total Iron Binding Capacity 307 ug/dL (228-460)
[2021-01-27 20:53] LABS: Rheumatoid Factor, Qnt <10 IU/mL (0-15)
[2021-01-27] MEDS: ATORVASTATIN 20 MG TAB PO SCH (21:17)
[2021-01-27] MEDS: MELATONIN 3 MG TABLET PO SCH (21:17)
[2021-01-27] MEDS: LATANOPROST 0.005% OPHTH DROPS 2.5 ML BTL BOTH EYES SCH (21:18)
[2021-01-27] MEDS: MIRTAZAPINE 15 MG TAB PO SCH (22:04)
[2021-01-28] MEDS: DOCUSATE 100 MG CAP PO SCH ×2 (08:16→20:32)
[2021-01-28] MEDS: ZINC SULFATE 220 MG CAP PO SCH (08:16)
[2021-01-28] MEDS: PANTOPRAZOLE 40 MG TABLET PO SCH ×2 (08:16→17:43)
[2021-01-28] MEDS: DONEPEZIL 10 MG TAB PO SCH ×2 (08:16→20:31)
[2021-01-28] MEDS: lisinopriL 10 MG TAB PO SCH (08:16)
[2021-01-28] MEDS: DEXAMETHASONE SOD PHOSPHATE 10 MG/ML 1 ML VIAL IV SCH (08:16)
--- NOTE | 2021-01-28 09:06 | P.PN ---
Subjective Progress Note Date: 01/27/21 Principal diagnosis: Late Entry Long discussion with patient, daughter and , status post one day dex and one dosage IVIG and platelets up to 9K Objective - Vital Signs Vital signs: Vital Signs Temp 97.4 F L 01/28/21 08:13 Pulse 94 01/28/21 08:13 Resp 16 01/28/21 08:13 BP 177/77 01/28/21 08:13 Pulse Ox 98 01/28/21 08:13 Intake & Output 01/27/21 01/28/21 01/28/21 18:59 06:59 18:59 Intake Total 83.5 240 Balance 83.5 240 Intake: Intake, IV Titration 83.5 Amount Immune Globulin ( 83.5 Gammagard) 20 gm In Empty Bag 1 bag @ Titrate IV . Q0M ONE Rx#:[id number] Oral 240 Other: # Voids 2 # Bowel Movements 1 - Exam Alert, POor Historian, Neck - Supple Mouth - Oral Blisters improvinf Lungs CTA HEart CTA Abdomen - ND NT EXT no edema - Labs CBC & Chem 7: 01/27/21 05:23 01/27/21 05:23 Labs: Abnormal Lab Results - Last 24 Hours (Table) 01/27/21 01/27/21 01/27/21 Range/Units 05:23 05:23 05:23 Neutrophils # 10.2 H (1.3-7.7) k/uL Lymphocytes # 0.6 L (1.0-4.8) k/uL Pathologist Review See comment A ESR 40 H (0-20) mm/hr Iron 40 L (50-170) ug/dL IgG 1888.0 H (700.0-1600.0) mg/dL 01/27/21 Range/Units 05:23 Neutrophils # (1.3-7.7) k/uL Lymphocytes # (1.0-4.8) k/uL Pathologist Review ESR (0-20) mm/hr Iron 39 L (50-170) ug/dL IgG (700.0-1600.0) mg/dL Assessment and Plan (1) Acute ITP Current Visit: Yes Status: Acute Code(s): D69.3 - IMMUNE THROMBOCYTOPENIC PURPURA SNOMED Code(s): 922158633 (2) Thrombocytopenia Current Visit: Yes Status: Acute Code(s): D69.6 - THROMBOCYTOPENIA, UNSPECIFIED SNOMED Code(s): 338959578 Plan: IV Dexamethasone PPI ans IVIG Transfuse platelets since less than 10K Continue current treatment plan and serial CBCs All questions answered best as possible
[2021-01-28 11:04] LABS: Basophils % (A) 0 %; Eosinophils % (A) 0 %; HCT 37.1 % (34.0-46.0); Lymphocytes % (A) 8 %; MCH 29.7 pg (25.0-35.0); MCHC 32.2 g/dL (31.0-37.0); MCV 92.2 fL (80.0-100.0); Mean Platelet Volume 13.7; Monocytes # (A) 0.5 k/uL (0-1.0); Monocytes % (A) 4 %; Neutrophils # (A) 10.8 k/uL (1.3-7.7); Neutrophils % (A) 87 %; RBC 4.02 m/uL (3.80-5.40); WBC 12.5 k/uL (3.8-10.6)
[2021-01-28 11:18] LABS: Large Platelets Present
[2021-01-28 11:19] LABS: Platelet Count 30 k/uL (150-450)
--- NOTE | 2021-01-28 12:39 | P.PN ---
Subjective Progress Note Date: 01/28/21 Pt doing well today, sores in her mouth are better. Denies bleeding or new rashes. Denies n/v/abd pain, denies f/c. Objective - Vital Signs Vital signs: Vital Signs Temp 97.9 F 01/28/21 12:10 Pulse 68 01/28/21 12:10 Resp 16 01/28/21 12:10 BP 147/78 01/28/21 12:10 Pulse Ox 98 01/28/21 12:10 Intake & Output 01/27/21 01/28/21 01/28/21 18:59 06:59 18:59 Intake Total 83.5 240 Balance 83.5 240 Intake: Intake, IV Titration 83.5 Amount Immune Globulin ( 83.5 Gammagard) 20 gm In Empty Bag 1 bag @ Titrate IV . Q0M ONE Rx#:[id number] Oral 240 Other: # Voids 2 # Bowel Movements 1 - Exam Gen: awake, alert HEENT: normocephalic, atraumatic, good hearing acuity, moist mucous membranes Resp: good air exchange, breathing comfortably with no accessory muscle use CVS: good distal perfusion x 4, GI: soft, NTTP, ND : no SPT, no CVAT, escalera catheter not present MSK: no pitting edema, no clubbing Neuro: non-focal, moving all extremities Psych: cooperative, euthymic mood - Labs CBC & Chem 7: 01/28/21 09:29 01/27/21 05:23 Labs: Abnormal Lab Results - Last 24 Hours (Table) 01/27/21 01/27/21 01/27/21 Range/Units 05:23 05:23 05:23 WBC (3.8-10.6) k/uL Plt Count (150-450) k/uL Neutrophils # (1.3-7.7) k/uL Pathologist Review See comment A Iron 40 L (50-170) ug/dL IgG 1888.0 H (700.0-1600.0) mg/dL 01/27/21 01/28/21 Range/Units 05:23 09:29 WBC 12.5 H (3.8-10.6) k/uL Plt Count 30 L D (150-450) k/uL Neutrophils # 10.8 H (1.3-7.7) k/uL Pathologist Review Iron 39 L (50-170) ug/dL IgG (700.0-1600.0) mg/dL Assessment and Plan Assessment: ITP -platelet levels only increase in 9000 after 2 sets of platelet transfusions -Check peripheral blood smear, HCV, coagulation studies, GARLAND, RF, TSH -TSH is 1.37 -PT/PTT/INR are normal -RF < 10 -GARLAND pending -HCV pending -Patient is receiving IV Decadron and IVIG -Appreciate further recommendations from hematology Prerenal azotemia -resolved, creatinine is normal today -likely secondary to poor oral intake and dehydration -IV fluids have been discontinued -Monitor BMP Chronic conditions: Hypertension, hyperlipidemia dementia -Continue with home meds DVT prophylaxis -IPCDs anticipated discharge home the next 2-3 days, or when platelets are relatively stable around 30-40,000
[2021-01-28] MEDS ORDERED: IMMUNE GLOBULIN (GAMMAGARD) 20 GM in EMPTY BAG 1 BAG IV ONE (13:00)
--- NOTE | 2021-01-28 15:40 | P.PN ---
Subjective Progress Note Date: 01/28/21 Principal diagnosis: Late Entry Awaiting CBC this am, resulted and is 30K. Objective - Vital Signs Vital signs: Vital Signs Temp 97.4 F L 01/28/21 08:13 Pulse 94 01/28/21 08:13 Resp 16 01/28/21 08:13 BP 177/77 01/28/21 08:13 Pulse Ox 98 01/28/21 08:13 Intake & Output 01/27/21 01/28/21 01/28/21 18:59 06:59 18:59 Intake Total 83.5 240 Balance 83.5 240 Intake: Intake, IV Titration 83.5 Amount Immune Globulin ( 83.5 Gammagard) 20 gm In Empty Bag 1 bag @ Titrate IV . Q0M ONE Rx#:[id number] Oral 240 Other: # Voids 2 # Bowel Movements 1 - Exam Alert, POor Historian, Neck - Supple Mouth - Oral Blisters improvinf Lungs CTA HEart CTA Abdomen - ND NT EXT no edema - Labs CBC & Chem 7: 01/28/21 09:29 01/27/21 05:23 Labs: Abnormal Lab Results - Last 24 Hours (Table) 01/27/21 01/27/21 01/27/21 Range/Units 05:23 05:23 05:23 Neutrophils # 10.2 H (1.3-7.7) k/uL Lymphocytes # 0.6 L (1.0-4.8) k/uL Pathologist Review See comment A ESR 40 H (0-20) mm/hr Iron 40 L (50-170) ug/dL IgG 1888.0 H (700.0-1600.0) mg/dL 01/27/21 Range/Units 05:23 Neutrophils # (1.3-7.7) k/uL Lymphocytes # (1.0-4.8) k/uL Pathologist Review ESR (0-20) mm/hr Iron 39 L (50-170) ug/dL IgG (700.0-1600.0) mg/dL Assessment and Plan (1) Acute ITP Current Visit: Yes Status: Acute Code(s): D69.3 - IMMUNE THROMBOCYTOPENIC PURPURA SNOMED Code(s): 967269283 (2) Thrombocytopenia Current Visit: Yes Status: Acute Code(s): D69.6 - THROMBOCYTOPENIA, UNSPECIFIED SNOMED Code(s): 020005516 Plan: COntinue on IV Dexamethasone 40mg Daily and PPI COntinue Day 3/3 IVIG Await results CBC Plan to follow-up in office weekly to wean steroids Message sent to Colin in my office to schedule Physician attest: I have completed the full history and physical and agree with above dictation, dictated as a ascribe.
[2021-01-28] MEDS: LATANOPROST 0.005% OPHTH DROPS 2.5 ML BTL BOTH EYES SCH (20:31)
[2021-01-28] MEDS: MELATONIN 3 MG TABLET PO SCH (20:31)
[2021-01-28] MEDS: MIRTAZAPINE 15 MG TAB PO SCH (20:32)
[2021-01-28] MEDS: ATORVASTATIN 20 MG TAB PO SCH (20:32)
[2021-01-28 21:25] VITALS: PULSE 69; RESP 18; TEMP 98.2
[2021-01-29 08:16] VITALS: BP 154/96
[2021-01-29] MEDS: DEXAMETHASONE SOD PHOSPHATE 10 MG/ML 1 ML VIAL IV SCH (08:17)
[2021-01-29] MEDS: ZINC SULFATE 220 MG CAP PO SCH (08:17)
[2021-01-29] MEDS: DONEPEZIL 10 MG TAB PO SCH (08:17)
[2021-01-29] MEDS: lisinopriL 10 MG TAB PO SCH (08:17)
[2021-01-29] MEDS: PANTOPRAZOLE 40 MG TABLET PO SCH (08:17)
[2021-01-29] MEDS: DOCUSATE 100 MG CAP PO SCH (08:17)
[2021-01-29 08:58] LABS: Basophils % (A) 0 %; Eosinophils % (A) 0 %; HCT 34.3 % (34.0-46.0); HGB 11.2 gm/dL (11.4-16.0); Lymphocytes # (A) 1.6 k/uL (1.0-4.8); Lymphocytes % (A) 14 %; MCH 29.2 pg (25.0-35.0); MCHC 32.6 g/dL (31.0-37.0); MCV 89.5 fL (80.0-100.0); Mean Platelet Volume 11.1; Monocytes # (A) 0.7 k/uL (0-1.0); Monocytes % (A) 6 %; Neutrophils % (A) 79 %; RBC 3.84 m/uL (3.80-5.40); WBC 11.4 k/uL (3.8-10.6)
[2021-01-29 09:08] LABS: Platelet Count 65 k/uL (150-450)
[2021-01-29 09:12] LABS: African American GFR (CKD) 73 (>60 ml/min/1.73 sqM); Anion Gap 7 mmol/L; Blood Urea Nitrogen 25 mg/dL (7-17); Calcium 8.9 mg/dL (8.4-10.2); Carbon Dioxide 26 mmol/L (22-30); Chloride 111 mmol/L (98-107); Glucose 94 mg/dL (74-99); Non-African American GFR(CKD) 63 (>60 ml/min/1.73 sqM); Potassium 3.3 mmol/L (3.5-5.1); Sodium 144 mmol/L (137-145)
[2021-01-29] MEDS ORDERED: Potassium Replacement Protocol 1 EACH MISC MISCELLANE PRN (12:38)
[2021-01-29] MEDS: POTASSIUM CHLORIDE ER 20 MEQ TAB.ER PO SCH ×2 (12:44→13:31)
--- NOTE | 2021-01-29 12:49 | P.DS ---
Providers Date of admission: 01/25/21 22:42 Expected date of discharge: 01/29/21 Attending physician: Lizandro Angulo MD Consults: 01/25/21 20:30 Consult Physician Routine Consulting Provider: Jay Collins Consult Reason/Comments: thrombocytopenia Do you want consulting provider notified?: Yes Primary care physician: Leola Jorge MD Hospital Course: This is a 85-year-old female who was admitted to the hospital with acute thrombocytopenia and platelet count of 3000. Patient was seen and evaluated by hematology and was treated with IV steroids and IVIG. Patient was diagnosed with ITP and extensive lab work was ordered by hematology. Her overall condition improved significantly. She received 2 sets of platelet transfusion as well during this admission. Platelet count improved. On the day of discharge her platelet count was 65k. Patient was cleared for discharge home. She will continue tapered course prednisone as directed. She will follow-up with hematology in the office next week. Discontinue home dose of aspirin for now. Follow up as directed. Patient would be discharged home in a stable condition. Patient was seen and evaluated by me on the day of discharge. Physical exam: General: The patient is awake and alert, in no distress Eye: there is normal conjunctiva bilaterally. Neck: The neck is supple, there is no JVD. Cardiovascular: Normal S1-S2, no S3-S4, no murmurs. Respiratory: Lungs clear to auscultation bilaterally Gastrointestinal: Abdomen is soft, nontender Musculoskeletal: There is no pedal edema. Neurological:. Speech is normal. Skin: Skin is warm and dry Patient Condition at Discharge: Serious Plan - Discharge Summary Discharge Rx Participant: No New Discharge Prescriptions: New RX: predniSONE [Deltasone] 60 mg PO DAILY #53 tab Pantoprazole [Protonix] 40 mg PO BID #60 tab Continue RX: [place]-3 Fatty Acids/Fish Oil [Fish Oil 1,000 mg Softgel] 1 cap PO DAILY RX: Multivitamins, Thera [Multivitamin (formulary)] 1 tab PO DAILY RX: Latanoprost [Xalatan 0.005%] 1 drop BOTH EYES HS RX: Quinapril HCl [Accupril] 10 mg PO DAILY RX: Donepezil [Aricept] 10 mg PO BID RX: Zinc 50 mg PO DAILY RX: Memantine [Namenda] 10 mg PO BID RX: Docusate [Colace] 100 mg PO BID RX: Cholecalciferol [Vitamin D3 (25 Mcg = 1000 Iu)] 25 mcg PO DAILY RX: Mirtazapine [Remeron] 22.5 mg PO HS RX: Simvastatin [Zocor] 40 mg PO HS [facility] 1 tab PO DAILY Discontinued Aspirin EC [Ecotrin Low Dose] 81 mg PO DAILY Discharge Medication List [facility] 1 tab PO DAILY 01/25/21 [History] RX: Cholecalciferol [Vitamin D3 (25 Mcg = 1000 Iu)] 25 mcg PO DAILY 01/25/21 [History] RX: Docusate [Colace] 100 mg PO BID 01/25/21 [History] RX: Donepezil [Aricept] 10 mg PO BID 01/25/21 [History] RX: Latanoprost [Xalatan 0.005%] 1 drop BOTH EYES HS 01/25/21 [History] RX: Memantine [Namenda] 10 mg PO BID 01/25/21 [History] RX: Mirtazapine [Remeron] 22.5 mg PO HS 01/25/21 [History] RX: Multivitamins, Thera [Multivitamin (formulary)] 1 tab PO DAILY 01/25/21 [History] RX: [place]-3 Fatty Acids/Fish Oil [Fish Oil 1,000 mg Softgel] 1 cap PO DAILY 01/25/21 [History] RX: Quinapril HCl [Accupril] 10 mg PO DAILY 01/25/21 [History] RX: Simvastatin [Zocor] 40 mg PO HS 01/25/21 [History] RX: Zinc 50 mg PO DAILY 01/25/21 [History] Pantoprazole [Protonix] 40 mg PO BID #60 tab 01/29/21 [Rx] RX: predniSONE [Deltasone] 60 mg PO DAILY #53 tab 01/29/21 [Rx] Follow up Appointment(s)/Referral(s): Leola Jorge MD [Primary Care Provider] - 1-2 days Nayeli Mack NPC [Nurse Practitioner] - 1 Week (Please call [facility] for appt) Discharge Disposition: HOME SELF-CARE
--- NOTE | 2021-01-29 16:01 | P.PN ---
Subjective Progress Note Date: 01/29/21 Principal diagnosis: ITP Pt is s/p IVIG x 3, pulse dose dex 40mg IV x 4 days (today is day 4). She has no acute c/o, denies any acute bleeding Objective - Vital Signs Vital signs: Vital Signs Temp 98.2 F 01/28/21 21:00 Pulse 69 01/29/21 08:15 Resp 18 01/28/21 21:00 BP 154/96 01/29/21 08:15 Pulse Ox 96 01/28/21 21:00 Intake & Output 01/28/21 01/29/21 01/29/21 18:59 06:59 18:59 Intake Total 15.5 Balance 15.5 Intake: Intake, IV Titration 15.5 Amount Immune Globulin ( 15.5 Gammagard) 20 gm In Empty Bag 1 bag @ Titrate IV . Q0M ONE Rx#:[id number] Other: Voiding Method Toilet # Voids 3 1 - Constitutional General appearance: Present: cooperative, no acute distress, thin - EENT Eyes: Present: anicteric sclerae, EOMI ENT: Present: hearing grossly normal, normal oropharynx - Respiratory Respiratory: bilateral: CTA - Cardiovascular Rhythm: regular Heart sounds: normal: S1, S2 - Peripheral edema leg Peripheral Edema: bilateral: None - Gastrointestinal General gastrointestinal: Present: normal bowel sounds, soft - Neurologic Neurologic: Present: CNII-XII intact - Musculoskeletal Musculoskeletal: Present: strength equal bilaterally - Psychiatric Psychiatric: Present: A&O x's 3, appropriate affect - Labs CBC & Chem 7: 01/29/21 08:32 01/29/21 08:32 Labs: Abnormal Lab Results - Last 24 Hours (Table) 01/26/21 01/28/21 01/29/21 Range/Units 06:46 09:29 08:32 WBC 12.5 H 11.4 H (3.8-10.6) k/uL Hgb 11.2 L (11.4-16.0) gm/dL Plt Count 30 L D 65 L D (150-450) k/uL Neutrophils # 10.8 H 9.0 H (1.3-7.7) k/uL Potassium (3.5-5.1) mmol/L Chloride (98-107) mmol/L BUN (7-17) mg/dL RBC Folate 999 H (280 - 791) ng/mL 01/29/21 Range/Units 08:32 WBC (3.8-10.6) k/uL Hgb (11.4-16.0) gm/dL Plt Count (150-450) k/uL Neutrophils # (1.3-7.7) k/uL Potassium 3.3 L (3.5-5.1) mmol/L Chloride 111 H (98-107) mmol/L BUN 25 H (7-17) mg/dL RBC Folate (280 - 791) ng/mL Assessment and Plan (1) Acute ITP Narrative/Plan: S/P IVIG x 3 with pulse dose dex 40mg x 4 days given. Plt [place] 3000 to [address]229. Pred taper and PPI sent to pt pharmacy. Cont to take. F/U 1 week in ofc to review plt, ensure proper steroid taper and f/u on outstanding labs. Setting for acute ITP suspected to be medication effect. Pt received last dose of Namenda 01/27 2100 dose. Have a call out to Neurology re: taper of this medication. WIll contact pt with further instructions. Status: Acute Priority: High Code(s): D69.3 - IMMUNE THROMBOCYTOPENIC PURPURA SNOMED Code(s): 242870665 Plan: Doctor attests: I performed a history and physical examination of this patient, developed impression and plan of care, discussed with dictator. I agree with dictators note, documented as a scribe. Time with Patient: Greater than 30
== END 2021-01-29 13:56 | disposition home or self-care (01) | DRG 813 ==
LOC: EC 16:48 → 5NMEDONC 22:42
PROVIDERS: ADMIT Internal Medicine; ATTEND Internal Medicine
PROC: 30233R1 Transfusion of Nonautologous Platelets into Peripheral Vein, Percutaneous Approach (ICD-10-PCS; principal; 2021-01-25)
DX: D69.3 Immune thrombocytopenic purpura (principal); I10 Essential (primary) hypertension; E78.5 Hyperlipidemia, unspecified; F03.90 Unspecified dementia, unspecified severity, without behavioral disturbance, psychotic disturbance, mood disturbance, and anxiety; E86.0 Dehydration; R21 Rash and other nonspecific skin eruption; R53.1 Weakness; H91.90 Unspecified hearing loss, unspecified ear; Z20.822 Contact with and (suspected) exposure to COVID-19; Z79.82 Long term (current) use of aspirin; Z79.899 Other long term (current) drug therapy; Z87.891 Personal history of nicotine dependence; Z90.710 Acquired absence of both cervix and uterus; Z88.2 Allergy status to sulfonamides; S00.522A Blister (nonthermal) of oral cavity, initial encounter; X58.XXXA Exposure to other specified factors, initial encounter
CPT/HCPCS: 36415; 80048; 80053; 82607; 82728; 82746; 82747; 82784; 83540; 83550; 83735; 83883; 83921; 84165; 84443; 85025; 85384; 85610; 85652; 85730; 86038; 86334; 86431; 86850; 86900; 86901; 87635; 96360; 99284

== ENCOUNTER → 2021-04-12 | Outpatient (CLI) | payer MEDICARE ==
--- NOTE | 2021-04-12 12:45 | US ---
EXAMINATION TYPE: US venous doppler duplex LE LT DATE OF EXAM: 04/12/2021 12:33 PM COMPARISON: NONE CLINICAL HISTORY: D69.3 ITP, C67.9Ca of Bladder, M12.9 Arthrit E78.5. swollen left leg SIDE PERFORMED: Left TECHNIQUE: The lower extremity deep venous system is examined utilizing real time linear array sonog jannet with graded compression, doppler sonography and color-flow sonography. VESSELS IMAGED: Common Femoral Vein Deep Femoral Vein Greater Saphenous Vein * Femoral Vein Popliteal Vein Small Saphenous Vein * Proximal Calf Veins (* superficial vessels) Left Leg: Negative for DVT Grayscale, color doppler, spectral doppler imaging performed of the deep veins of the left lower extr emity. There is normal flow, compressibility, vascular waveforms. IMPRESSION: No ultrasound evidence for acute DVT in the left lower extremity.
== END | disposition home or self-care (01) ==
LOC: RADUSWWP 12:11
PROVIDERS: ATTEND Internal Medicine Hematology & Oncology
DX: C67.9 Malignant neoplasm of bladder, unspecified (principal); R22.42 Localized swelling, mass and lump, left lower limb; D69.3 Immune thrombocytopenic purpura; M12.9 Arthropathy, unspecified; E78.5 Hyperlipidemia, unspecified

== ENCOUNTER 2021-11-28 14:08 | Emergency (ER) | payer MEDICARE ==
--- NOTE | 2021-11-28 16:22 | ED ---
General Adult HPI - General Chief complaint: Altered Mental Status Stated complaint: Dehydration,AMS Time Seen by Provider: 11/28/21 15:56 Source: patient Mode of arrival: ambulatory Limitations: no limitations - History of Present Illness Initial comments: Dictation was produced using [employer] dictation software. please excuse any grammatical, word or spelling errors. Chief Complaint: 85-year-old female brought in by daughter and for lethargic episode History of Present Illness: 85-year-old female with chronic history of moderate to severe dementia. Yesterday she is found to be lethargic for most of the day. She was observed to be coughing also. This morning seemed to be a lot more improved since yesterday. Daughter and had a conversation with patient's primary care doctor who suggested that patient come to the ER to be evaluated. Patient is unreliable historian at this time secondary to her dementia. The ROS documented in this emergency department record has been reviewed and confirmed by me. Those systems with pertinent positive or negative responses have been documented in the HPI. All other systems are other negative and/or noncontributory. PHYSICAL EXAM: General Impression: Alert and oriented x3/4, not in acute distress HEENT: Normocephalic atraumatic, extra-ocular movements intact, pupils equal and reactive to light bilaterally, mucous membranes moist. Cardiovascular: Heart regular rate and rhythm Chest: Able to complete full sentences, no retractions, no tachypnea Abdomen: abdomen soft, non-tender, non-distended, no organomegaly Musculoskeletal: Pulses present and equal in all extremities, no peripheral edema Motor: no focal deficits noted Neurological: CN II-XII grossly intact, no focal motor or sensory deficits noted Skin: Intact with no visualized rashes Psych: Normal affect and mood ED course: 85-year-old female with moderate to severe dementia presents to the ER for lethargic episode yesterday. Family was concerned about some coughing she had yesterday. Vital Signs upon arrival are within acceptable limits. Patient is in no acute distress. Physical examination is benign. Laboratory evaluation obtained. CBC unremarkable. Metabolic panel is negative. Urinalysis is negative. Coronavirus is positive. Chest x-ray is nonacute. Computed tomography scan of brain is unremarkable. Patient meets criteria for monoclonal antibody infusion. Patient benefits were discussed with patient, patient's daughter and patient's . They were agreeable with monoclonal antibody infusion. Patient given infusion and monitored after for adverse effects. Patient tolerated infusion will be discharge back to home. EKG interpretation: Ventricular rate 69, sinus rhythm,. Interval 125, per 66, QTC 399. No NH prolongation, no QTC prolongation, no ST or T-wave changes noted. Overall, this EKG is unremarkable - Related Data Home Medications Medication Instructions Recorded Confirmed Docusate [Colace] 100 mg PO DAILY 01/25/21 11/28/21 Donepezil [Aricept] 10 mg PO BID 01/25/21 11/28/21 Latanoprost [Xalatan 0.005%] 1 drop BOTH EYES HS 01/25/21 11/28/21 Memantine [Namenda] 10 mg PO BID 01/25/21 11/28/21 Quinapril HCl [Accupril] 10 mg PO DAILY 01/25/21 11/28/21 Simvastatin [Zocor] 40 mg PO DAILY 01/25/21 11/28/21 QUEtiapine [SEROquel] 25 mg PO HS 11/28/21 11/28/21 Sertraline [Zoloft] 50 mg PO DAILY 11/28/21 11/28/21 Previous Rx's Medication Instructions Recorded Pantoprazole [Protonix] 40 mg PO BID #60 tab 01/29/21 Allergies Allergy/AdvReac Type Severity Reaction Status Date / Time Sulfa (Sulfonamide Allergy Unknown Verified 11/28/21 17:24 Antibiotics) Review of Systems ROS Statement: Those systems with pertinent positive or pertinent negative responses have been documented in the HPI. ROS Other: All systems not noted in ROS Statement are negative. Past Medical History Past Medical History: Dementia, Hyperlipidemia, Hypertension History of Any Multi-Drug Resistant Organisms: None Reported Past Surgical History: Hysterectomy Past Anesthesia/Blood Transfusion Reactions: Postoperative Nausea & Vomiting (PONV) Past Psychological History: No Psychological Hx Reported Smoking Status: Former smoker Past Alcohol Use History: None Reported Past Drug Use History: None Reported General Exam Limitations: no limitations Course Vital Signs 11/28/21 11/28/21 11/28/21 15:49 17:33 19:04 Temperature 98.2 F 98.2 F 98.4 F Pulse Rate 82 80 81 Respiratory 20 18 18 Rate Blood Pressure 104/68 106/70 139/89 O2 Sat by Pulse 97 100 100 Oximetry Medical Decision Making - Lab Data Result diagrams: 11/28/21 16:48 11/28/21 16:48 Lab Results 11/28/21 11/28/21 11/28/21 Range/Units 16:48 16:48 16:57 WBC 7.2 (3.8-10.6) k/uL RBC 4.61 (3.80-5.40) m/uL Hgb 13.4 (11.4-16.0) gm/dL Hct 41.9 (34.0-46.0) % MCV 90.8 (80.0-100.0) fL MCH 29.0 (25.0-35.0) pg MCHC 31.9 (31.0-37.0) g/dL RDW 12.9 (11.5-15.5) % Plt Count 180 (150-450) k/uL MPV 8.0 Neutrophils % 75 % Lymphocytes % 14 % Monocytes % 9 % Eosinophils % 0 % Basophils % 0 % Neutrophils # 5.3 (1.3-7.7) k/uL Lymphocytes # 1.0 (1.0-4.8) k/uL Monocytes # 0.6 (0-1.0) k/uL Eosinophils # 0.0 (0-0.7) k/uL Basophils # 0.0 (0-0.2) k/uL Sodium 141 (137-145) mmol/L Potassium 4.1 (3.5-5.1) mmol/L Chloride 106 (98-107) mmol/L Carbon Dioxide 31 H (22-30) mmol/L Anion Gap 4 mmol/L BUN 26 H (7-17) mg/dL Creatinine 0.84 (0.52-1.04) mg/dL Est GFR (CKD-EPI)AfAm 73 (>60 ml/min/1.73 sqM) Est GFR (CKD-EPI)NonAf 63 (>60 ml/min/1.73 sqM) Glucose 93 (74-99) mg/dL Calcium 9.1 (8.4-10.2) mg/dL Urine Color Yellow Urine Appearance Clear (Clear) Urine pH 5.5 (5.0-8.0) Ur Specific [place] 1.031 (1.001-1.035) Urine Protein 1+ H (Negative) Urine Glucose (UA) Negative (Negative) Urine Ketones Negative (Negative) Urine Blood Negative (Negative) Urine Nitrite Negative (Negative) Urine Bilirubin Negative (Negative) Urine Urobilinogen <2.0 (<2.0) mg/dL Ur Leukocyte Esterase Negative (Negative) Urine RBC 6 H (0-5) /hpf Urine WBC 2 (0-5) /hpf Ur Squamous Epith Cells <1 (0-4) /hpf Hyaline Casts 1 (0-2) /lpf Urine Mucus Many H (None) /hpf Influenza Type A (PCR) (Not Detectd) Influenza Type B (PCR) (Not Detectd) RSV (PCR) (Not Detectd) SARS-CoV-2 (PCR) (Not Detectd) 11/28/21 Range/Units 17:05 WBC (3.8-10.6) k/uL RBC (3.80-5.40) m/uL Hgb (11.4-16.0) gm/dL Hct (34.0-46.0) % MCV (80.0-100.0) fL MCH (25.0-35.0) pg MCHC (31.0-37.0) g/dL RDW (11.5-15.5) % Plt Count (150-450) k/uL MPV Neutrophils % % Lymphocytes % % Monocytes % % Eosinophils % % Basophils % % Neutrophils # (1.3-7.7) k/uL Lymphocytes # (1.0-4.8) k/uL Monocytes # (0-1.0) k/uL Eosinophils # (0-0.7) k/uL Basophils # (0-0.2) k/uL Sodium (137-145) mmol/L Potassium (3.5-5.1) mmol/L Chloride (98-107) mmol/L Carbon Dioxide (22-30) mmol/L Anion Gap mmol/L BUN (7-17) mg/dL Creatinine (0.52-1.04) mg/dL Est GFR (CKD-EPI)AfAm (>60 ml/min/1.73 sqM) Est GFR (CKD-EPI)NonAf (>60 ml/min/1.73 sqM) Glucose (74-99) mg/dL Calcium (8.4-10.2) mg/dL Urine Color Urine Appearance (Clear) Urine pH (5.0-8.0) Ur Specific [place] (1.001-1.035) Urine Protein (Negative) Urine Glucose (UA) (Negative) Urine Ketones (Negative) Urine Blood (Negative) Urine Nitrite (Negative) Urine Bilirubin (Negative) Urine Urobilinogen (<2.0) mg/dL Ur Leukocyte Esterase (Negative) Urine RBC (0-5) /hpf Urine WBC (0-5) /hpf Ur Squamous Epith Cells (0-4) /hpf Hyaline Casts (0-2) /lpf Urine Mucus (None) /hpf Influenza Type A (PCR) Not Detected (Not Detectd) Influenza Type B (PCR) Not Detected (Not Detectd) RSV (PCR) Not Detected (Not Detectd) SARS-CoV-2 (PCR) Detected A (Not Detectd) Disposition Clinical Impression: Coronavirus infection Disposition: HOME SELF-CARE Condition: Fair Instructions (If sedation given, give patient instructions): Coronavirus Disease 2019 (COVID-19) Is patient prescribed a controlled substance at d/c from ED?: No Referrals: Leola Jorge MD [Primary Care Provider] - 1-2 days Time of Disposition: 20:40
[2021-11-28 16:56] LABS: Basophils % (A) 0 %; Eosinophils % (A) 0 %; HCT 41.9 % (34.0-46.0); HGB 13.4 gm/dL (11.4-16.0); Lymphocytes % (A) 14 %; MCHC 31.9 g/dL (31.0-37.0); MCV 90.8 fL (80.0-100.0); Monocytes # (A) 0.6 k/uL (0-1.0); Monocytes % (A) 9 %; Neutrophils # (A) 5.3 k/uL (1.3-7.7); Neutrophils % (A) 75 %; Platelet Count 180 k/uL (150-450); RBC 4.61 m/uL (3.80-5.40); RDW 12.9 % (11.5-15.5); WBC 7.2 k/uL (3.8-10.6)
[2021-11-28 17:04] LABS: Calcium 9.1 mg/dL (8.4-10.2); Potassium 4.1 mmol/L (3.5-5.1)
[2021-11-28 17:25] LABS: Appearance,Urine Clear (Clear); Bilirubin,Urine Negative (Negative); Blood,Urine Negative (Negative); Color,Urine Yellow; Glucose,Urine (UA) Negative (Negative); Hyaline Casts,Urine 1 /lpf (0-2); Ketones,Urine Negative (Negative); Leukocyte Esterase,Urine Negative (Negative); Mucus,Urine Many /hpf; Nitrite,Urine Negative (Negative); PH, Urine 5.5 (5.0-8.0); Protein,Urine 1+ (Negative); RBC,Urine 6 /hpf (0-5); Specific Gravity,Urine 1.031 (1.001-1.035); Squamous Epithelial Cell,Urine <1 /hpf (0-4); Urobilinogen,Urine <2.0 mg/dL (<2.0); WBC,Urine 2 /hpf (0-5)
[2021-11-28 17:35] VITALS: RESP 18
--- NOTE | 2021-11-28 18:25 | XR ---
EXAMINATION TYPE: XR chest 2V DATE OF EXAM: 11/28/2021 COMPARISON: NONE HISTORY: Altered mental status. Lethargic episode. TECHNIQUE: Frontal and lateral views of the chest are obtained. FINDINGS: There is no focal air space opacity, pleural effusion, or pneumothorax seen. The cardiac silhouette size is within normal limits. The osseous structures are intact. IMPRESSION: No acute cardiopulmonary process.
--- NOTE | 2021-11-28 18:31 | CT ---
EXAM: CT brain wo con CLINICAL HISTORY: Lethargic episode. Dementia. COMPARISON: 10/12/2018 TECHNIQUE: Contiguous axial noncontrast images of the brain were obtained. Coronal and sagittal refor mats were generated and reviewed. Automated dose control was used for this exam. FINDINGS: There is no evidence for intracranial hemorrhage, mass effect or midline shift. There is mild white m atter disease and parenchymal volume loss. Ventricular size and configuration is within normal limits for degree of parenchymal volume. The paranasal sinuses are clear. The mastoid air cells are clear. No evidence for calvarial fracture. IMPRESSION: No acute intracranial abnormality.
[2021-11-28] MEDS ORDERED: BEBTELOVIMAB (EUA) 175 MG/2 ML VIAL IV ONE (20:00)
[2021-11-28 21:22] VITALS: BP 144/99; PULSE 55; TEMP 97.9
== END 2021-11-28 21:33 | disposition home or self-care (01) ==
LOC: EC 14:08
DX: U07.1 COVID-19 (principal); R41.82 Altered mental status, unspecified; I10 Essential (primary) hypertension; E78.5 Hyperlipidemia, unspecified; Z87.891 Personal history of nicotine dependence; Z88.2 Allergy status to sulfonamides; Z79.899 Other long term (current) drug therapy
CPT/HCPCS: 99285; 36415; 93005; 80048; 85025; 81001; 87636; 71046; 70450; Q0222